=== PATIENT | male | born 1955 | race Caucasian/White ===

== ENCOUNTER → 2020-09-26 10:33 | Outpatient (CLI) | payer OTHER, SELFPAY ==
[2020-09-26 12:32] LABS: Hemoglobin A1C% w Est Avg Glu 6.9 % (4.0-6.0)
[2020-09-26 12:41] LABS: BUN Creatinine Ratio 20.8 (6-22); Blood Urea Nitrogen 22 mg/dL (9-20); Calcium 9.9 mg/dL (8.4-10.2); Carbon Dioxide 23 mmol/L (22-32); Chloride 101 mmol/L (98-107); Cholesterol 126 mg/dL (140-199); Estimated Glomerular Filt Rate > 60.0 mL/min (>60); Glucose 168 mg/dL (80-110); HDL Cholesterol 40 mg/dL (40-60); HEMOLYSIS < 15 (0-50); LDL Cholesterol Calculated 53 mg/dL (<100); Potassium 4.6 mmol/L (3.4-5.1); Sodium 135 mmol/L (137-145); Triglycerides 167 mg/dL (35-150)
[2020-09-26 12:56] LABS: Vitamin D 25 Hydroxy (D3) 37.7 ng/mL (30.0-100.0)
[2020-09-26 13:09] LABS: Prostate Specific Antigen Scrn 12.6 ng/mL (0.1-4.0)
[2020-09-26 13:11] LABS: TSH w/ Reflex to FT4 1.56 uIU/mL (0.47-4.68)
[2020-09-26 13:28] LABS: Vitamin B12 241 pg/mL (239-931)
[2020-09-26 14:36] LABS: Creatinine Urine Random 217.9 mg/dL
[2020-09-26 14:40] LABS: Microalbumi Creatinin Ratio Ur 6.4 ug/mg CR (<30); Microalbumin Urine Random 1.4 mg/dL (0-1.6)
== END ==
PROVIDERS: PCP Student in an Organized Health Care Education/Training Program; Referring Provider Student in an Organized Health Care Education/Training Program; Visit Provider Student in an Organized Health Care Education/Training Program
DX: E11.9 Type 2 diabetes mellitus without complications (principal); E88.9 Metabolic disorder, unspecified; G63 Polyneuropathy in diseases classified elsewhere; E55.9 Vitamin D deficiency, unspecified; Z12.5 Encounter for screening for malignant neoplasm of prostate
CPT/HCPCS: 36415; 80048; 80061; 82043; 82306; 82570; 82607; 83036; 84443; G0103

== ENCOUNTER → 2020-10-09 19:03 | Outpatient (CLI) | payer OTHER, SELFPAY ==
--- NOTE | 2020-10-09 19:19 | DI.MRI.S_ITS ---
PROCEDURE: MR KNEE RT WO CON INDICATIONS: Right knee crepitus and pain TECHNIQUE: Noncontrast sagittal PD fast spin echo and T2 fast spin echo with fat saturation, sagittal 3-D FLASH with fat saturation; coronal T1 spin echo and PD fast spin echo with fat saturation, and axial PD fast spin echo with fat saturation through the knee. COMPARISON: None. FINDINGS: Image quality: Excellent. Menisci: Peripheral displacement of medial meniscus bowing medial collateral ligament is seen with complex tear involving body and posterior horn of medial meniscus extending to superior and inferior articulating surfaces. No evidence of focal lateral meniscal tear. The meniscal root ligaments appear intact. Cruciate ligaments: The anterior and posterior cruciate ligaments appear intact. Medial structures: Low-grade proximal MCL sprain/partial-thickness tear is seen. The posterior oblique ligament, semimembranosus tendon insertions, oblique popliteal ligament, and meniscocapsular junction appear intact. Visualized portions of the pes anserinus tendons appear normal. No abnormal bursal fluid. Lateral structures: The lateral collateral ligament, long and short heads of the biceps femoris tendon appear intact. The popliteus tendon appears normal; the popliteofibular ligament appears intact. The posterosuperior and anteroinferior popliteomeniscal fascicles appear intact. The arcuate and fabellofibular ligaments appear intact, on either side of the lateral inferior geniculate artery. Iliotibial band appears normal. Anterior structures: The quadriceps and patellar tendons appear intact. Patellar alignment is normal. No femoral trochlear dysplasia or ventral trochlear prominence. No edema in the infrapatellar fat pad. Bones and cartilage: No bone marrow contusions or fractures. 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 Prominent marginal osteophyte formation are noted in medial and lateral femoral tibial compartments and patellofemoral compartment. Joint space: There is small to moderate amount of joint fluid, no gross intra-articular loose body. Small popliteal cyst is seen. Normal appearing synovial plicae are incidentally noted. IMPRESSION: 1. 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 No acute fracture or dislocation. No marrow edema. Small to moderate amount of joint fluid, no gross intra-articular loose body. Small popliteal cyst. 2. Complex tear involving body and posterior horn of medial meniscus extending to superior and inferior articulating surfaces. No focal lateral meniscal tear. 3. Cruciate ligaments are intact. 4. Low-grade proximal MCL sprain/partial-thickness tear. Dictated by: Kalia Buenrostro M.D. on 10/10/2020 at 11:28 Approved by: Kalia Buenrostro M.D. on 10/10/2020 at 11:55
== END ==
PROVIDERS: PCP Student in an Organized Health Care Education/Training Program; Referring Provider Student in an Organized Health Care Education/Training Program; Visit Provider Student in an Organized Health Care Education/Training Program
DX: M25.561 Pain in right knee (principal); M23.8X1 Other internal derangements of right knee; S83.231A Complex tear of medial meniscus, current injury, right knee, initial encounter; S83.411A Sprain of medial collateral ligament of right knee, initial encounter; M17.11 Unilateral primary osteoarthritis, right knee; M94.261 Chondromalacia, right knee; M71.21 Synovial cyst of popliteal space [Baker], right knee
CPT/HCPCS: 73721

== ENCOUNTER → 2020-10-10 14:50 | Outpatient (ROUT) | payer OTHER, SELFPAY ==
[2020-10-14 11:12] LABS: Fecal Immunochemical Test Negative (Negative)
== END ==
PROVIDERS: PCP Student in an Organized Health Care Education/Training Program; Visit Provider Student in an Organized Health Care Education/Training Program
DX: Z12.11 Encounter for screening for malignant neoplasm of colon (principal)
CPT/HCPCS: 82274

== ENCOUNTER → 2020-10-29 07:19 | Outpatient (CLI) | payer OTHER, SELFPAY ==
[2020-10-29 08:25] LABS: Hemoglobin A1C% w Est Avg Glu 7.1 % (4.0-6.0)
[2020-10-29 09:23] LABS: Prostate Specific Antigen 13.6 ng/mL (0.10-4.00)
== END ==
PROVIDERS: PCP Student in an Organized Health Care Education/Training Program; Referring Provider Student in an Organized Health Care Education/Training Program; Visit Provider Student in an Organized Health Care Education/Training Program
DX: R97.20 Elevated prostate specific antigen [PSA] (principal); E11.42 Type 2 diabetes mellitus with diabetic polyneuropathy
CPT/HCPCS: 36415; 83036; 84153